=== PATIENT | male | born 1965 | race Hispanic/Latino ===

== ENCOUNTER 2018-11-13 15:22 | Outpatient (CLI) | payer MEDICARE ==
--- NOTE | 2018-11-13 21:50 | RAD ---
LEFT FOOT THREE VIEWS: 11/13/18 An ulceration is seen on the plantar surface of the patient's heel. The calcaneus is normal in appear ance with no bony destructive lesion or periosteal reaction of concern. No fractures were noted in th e foot. There is truly severe arteriosclerotic change throughout the foot and lower leg. IMPRESSION: No significant bony changes. POS: HOME
== END 2018-11-13 15:23 | disposition home or self-care (01) ==
LOC: BURRAD 15:22
PROVIDERS: ATTEND Family Medicine
DX: L97.429 Non-pressure chronic ulcer of left heel and midfoot with unspecified severity (principal)